=== PATIENT | female | born 1995 | race Caucasian/White ===

== ENCOUNTER → 2017-02-16 | Outpatient (CLI) | payer OTHER | LOC: FIMAGING 07:21 | PROVIDERS: ATTEND Radiology Diagnostic Radiology | PROC: 3E0W3KZ Introduction of Other Diagnostic Substance into Lymphatics, Percutaneous Approach (ICD-10-PCS; principal; 2017-02-16) | DX: C43.71 Malignant melanoma of right lower limb, including hip (principal) | CPT/HCPCS: 78195; A9520 ==